=== PATIENT | male | born 1970 | race Caucasian/White ===

== ENCOUNTER 2018-11-22 19:16 | Inpatient (IN) | payer SELFPAY ==
[~2018-11-22] VITALS: Ht 165.1 cm; Wt 82.2 kg
--- NOTE | 2018-11-22 19:32 | ER Report ---
History and Physical Time Seen By MD: 19:32 Hx. of Stated Complaint: Pt. reports he has been depressed and stressed out lately. He took 30 of Venlafaxine HCL 75mg XR Capsules. Chest pain currently 9/10 when he breathes in. Pt. also drank a 40oz beer today. Pt. was not trying to hurt himself/OD. He was just trying to relax by taking the medication. HPI/ROS CHIEF COMPLAINT: Overdose HISTORY OF PRESENT ILLNESS: Patient is a 48 male who is a registered sex offender. He states he's been depressed lately because he can't find a place to live in [facility] he reports that he is a registered sex offender. This has caused him stress and depression. States he took 30 extra tablets 75 mg extended release in an attempt to commit suicide. Additionally, he states he's having some chest pain when he breathes and also drank some beer this evening. He states he was "not trying to hurt himself but" he was just trying to relax. Police have filled out a title 25 There is concern for personal safety. REVIEW OF SYSTEMS: Constitutional: No fever, no chills. Eyes: No discharge. ENT: No sore throat. Cardiovascular: No chest pain, no palpitations. Respiratory: No cough, no shortness of breath. Gastrointestinal: No abdominal pain, no vomiting. Genitourinary: No hematuria. Musculoskeletal: No back pain. Skin: No rashes. Neurological: No headache. Allergies: Coded Allergies: No Known Drug Allergies (Unverified , 11/22/18) Past Medical/Surgical History Prior history of sex offending Constitutional Vital Sign - Last 24 Hours 11/22/18 11/22/18 11/22/18 11/22/18 19:21 19:25 19:30 19:46 Temp 98.3 Pulse 93 110 Resp 16 12 B/P (MAP) 128/86 (100) 128/86 122/88 (99) Pulse Ox 90 93 O2 Delivery Room Air 11/22/18 11/22/18 11/22/18 20:00 20:16 20:46 Pulse 90 99 Resp 18 20 B/P (MAP) 116/77 (90) Pulse Ox 91 90 Physical Exam General/Constitutional: Patient is awake, alert, nontoxic and in no acute respiratory distress. Head: Normocephalic and atraumatic. Eyes: Conjunctival clear, Pupils are equal and reactive to light. Extraocular muscles are intact and symmetrical. Sclera are clear and anicteric. Ears:External canals are clear. Tympanic membranes are clear with normal landmarks and light reflex. Nares: No rhinorrhea or bleeding. Turbinates are pink and moist. Oropharyngeal: Mucous membranes are moist. There is no pharyngeal erythema or exudate. There are no palatal petechiae. Uvula is midline and symmetrical. Neck: Supple, no adenopathy. Cardiovascular: Heart is regular rate and rhythm without audible murmurs, rubs or gallops. Pulmonary: Lungs are clear to auscultation bilaterally. There are no wheezes, rales, or rhonchi. Chest rise is symmetrical Abdomen: Soft, nontender, no guarding or peritoneal signs. Extremities: No gross deformities, No peripheral cyanosis. Able to move all 4 extremities. Neuro: Alert and oriented X3, Cranial nerves 2 thru 12 are intact and symmetrical. Patient has normal gait. Skin: No rashes, skin is warm dry and well perfused.; Psychiatric: Patient with suicidal thoughts; depression Thought process is logic al and goal-directed Medical Decision Making Data Points Result Diagram: 11/22/18191611/22/181916 Laboratory Hematology Test 11/22/18 19:17 11/22/18 20:22 Red Blood Count 5.73 M/uL (4.00-5.60) Mean Corpuscular Volume 85.1 fL (80.0-96.0) Mean Corpuscular Hemoglobin 27.7 pg (26.0-33.0) Mean Corpuscular Hemoglobin Concent 32.6 g/dL (32.0-36.0) Red Cell Distribution Width 17.6 % (11.5-14.5) Mean Platelet Volume 9.1 fL (7.2-11.1) Neutrophils (%) (Auto) 56.9 % (39.4-72.5) Lymphocytes (%) (Auto) 35.2 % (17.6-49.6) Monocytes (%) (Auto) 7.0 % (4.1-12.4) Eosinophils (%) (Auto) 0.4 % (0.4-6.7) Basophils (%) (Auto) 0.5 % (0.3-1.4) Nucleated RBC Relative Count (auto) 0.1 /100WBC Neutrophils # (Auto) 5.3 K/uL (2.0-7.4) Lymphocytes # (Auto) 3.3 K/uL (1.3-3.6) Monocytes # (Auto) 0.7 K/uL (0.3-1.0) Eosinophils # (Auto) 0.0 K/uL (0.0-0.5) Basophils # (Auto) 0.0 K/uL (0.0-0.1) Nucleated RBC Absolute Count (auto) 0.01 K/uL Sodium Level 141 mmol/L (137-145) Potassium Level 3.4 mmol/L (3.5-5.0) Chloride Level 105 mmol/L (98-107) Carbon Dioxide Level 21 mmol/L (22-30) Blood Urea Nitrogen 12 mg/dl (9-21) Creatinine 0.90 mg/dl (0.66-1.25) Glomerular Filtration Rate Calc > 60.0 Random Glucose 119 mg/dl (75-110) Calcium Level 9.8 mg/dl (8.4-10.2) Magnesium Level 2.5 mg/dl (1.7-2.2) Total Bilirubin 0.4 mg/dl (0.2-1.3) Aspartate Amino Transf (AST/SGOT) 30 U/L (0-35) Alanine Aminotransferase (ALT/SGPT) 25 U/L (0-56) Alkaline Phosphatase 100 U/L (0-126) Total Protein 8.9 g/dl (6.3-8.2) Albumin 5.1 g/dl (3.5-5.0) Salicylates Level < 10 mg/L Salicylate Last Dose Date unk Acetaminophen Level < 10 ug/ml Serum Alcohol 168 mg/dl Urine Color Colorless Urine Clarity Clear Urine pH 6.0 pH (4.8-9.5) Urine Specific [place] 1.002 Urine Protein Negative mg/dL (NEGATIVE) Urine Glucose (UA) 50 mg/dL (NEGATIVE) Urine Ketones Negative mg/dL (NEGATIVE) Urine Blood Negative (NEGATIVE) Urine Nitrite Negative (NEGATIVE) Urine Bilirubin Negative (NEGATIVE) Urine Urobilinogen Negative mg/dL (0.2-1.9) Urine Leukocyte Esterase Negative (NEGATIVE) Urine RBC None /HPF (0-2/HPF) Urine WBC None /HPF (0-5/HPF) Urine Squamous Epithelial Cells None /LPF (</=FEW) Urine Bacteria Negative /HPF (NONE-FEW) Urine Mucus None /HPF (NONE-FEW) Urine Opiates Screen Negative Urine Barbiturates Screen Negative Ur Tricyclic Antidepressants Screen Negative Urine Phencyclidine Screen Negative Urine Amphetamines Screen Negative Urine Benzodiazepines Screen Negative Urine Cocaine Screen Negative Urine Cannabinoids Screen Negative Chemistry Test 11/22/18 19:17 11/22/18 20:22 White Blood Count 9.3 k/uL (4.5-11.0) Red Blood Count 5.73 M/uL (4.00-5.60) Hemoglobin 15.9 g/dL (14.0-18.0) Hematocrit 48.8 % (42.0-52.0) Mean Corpuscular Volume 85.1 fL (80.0-96.0) Mean Corpuscular Hemoglobin 27.7 pg (26.0-33.0) Mean Corpuscular Hemoglobin Concent 32.6 g/dL (32.0-36.0) Red Cell Distribution Width 17.6 % (11.5-14.5) Platelet Count 387 K/uL (150-450) Mean Platelet Volume 9.1 fL (7.2-11.1) Neutrophils (%) (Auto) 56.9 % (39.4-72.5) Lymphocytes (%) (Auto) 35.2 % (17.6-49.6) Monocytes (%) (Auto) 7.0 % (4.1-12.4) Eosinophils (%) (Auto) 0.4 % (0.4-6.7) Basophils (%) (Auto) 0.5 % (0.3-1.4) Nucleated RBC Relative Count (auto) 0.1 /100WBC Neutrophils # (Auto) 5.3 K/uL (2.0-7.4) Lymphocytes # (Auto) 3.3 K/uL (1.3-3.6) Monocytes # (Auto) 0.7 K/uL (0.3-1.0) Eosinophils # (Auto) 0.0 K/uL (0.0-0.5) Basophils # (Auto) 0.0 K/uL (0.0-0.1) Nucleated RBC Absolute Count (auto) 0.01 K/uL Glomerular Filtration Rate Calc > 60.0 Calcium Level 9.8 mg/dl (8.4-10.2) Magnesium Level 2.5 mg/dl (1.7-2.2) Total Bilirubin 0.4 mg/dl (0.2-1.3) Aspartate Amino Transf (AST/SGOT) 30 U/L (0-35) Alanine Aminotransferase (ALT/SGPT) 25 U/L (0-56) Alkaline Phosphatase 100 U/L (0-126) Total Protein 8.9 g/dl (6.3-8.2) Albumin 5.1 g/dl (3.5-5.0) Salicylates Level < 10 mg/L Salicylate Last Dose Date unk Acetaminophen Level < 10 ug/ml Serum Alcohol 168 mg/dl Urine Color Colorless Urine Clarity Clear Urine pH 6.0 pH (4.8-9.5) Urine Specific [place] 1.002 Urine Protein Negative mg/dL (NEGATIVE) Urine Glucose (UA) 50 mg/dL (NEGATIVE) Urine Ketones Negative mg/dL (NEGATIVE) Urine Blood Negative (NEGATIVE) Urine Nitrite Negative (NEGATIVE) Urine Bilirubin Negative (NEGATIVE) Urine Urobilinogen Negative mg/dL (0.2-1.9) Urine Leukocyte Esterase Negative (NEGATIVE) Urine RBC None /HPF (0-2/HPF) Urine WBC None /HPF (0-5/HPF) Urine Squamous Epithelial Cells None /LPF (</=FEW) Urine Bacteria Negative /HPF (NONE-FEW) Urine Mucus None /HPF (NONE-FEW) Urine Opiates Screen Negative Urine Barbiturates Screen Negative Ur Tricyclic Antidepressants Screen Negative Urine Phencyclidine Screen Negative Urine Amphetamines Screen Negative Urine Benzodiazepines Screen Negative Urine Cocaine Screen Negative Urine Cannabinoids Screen Negative Toxicology Test 11/22/18 19:17 11/22/18 20:22 Salicylates Level < 10 mg/L Salicylate Last Dose Date unk Acetaminophen Level < 10 ug/ml Serum Alcohol 168 mg/dl Urine Opiates Screen Negative Urine Barbiturates Screen Negative Ur Tricyclic Antidepressants Screen Negative Urine Phencyclidine Screen Negative Urine Amphetamines Screen Negative Urine Benzodiazepines Screen Negative Urine Cocaine Screen Negative Urine Cannabinoids Screen Negative Urinalysis Test 11/22/18 20:22 Urine Color Colorless Urine Clarity Clear Urine pH 6.0 pH (4.8-9.5) Urine Specific [place] 1.002 Urine Protein Negative mg/dL (NEGATIVE) Urine Glucose (UA) 50 mg/dL (NEGATIVE) Urine Ketones Negative mg/dL (NEGATIVE) Urine Blood Negative (NEGATIVE) Urine Nitrite Negative (NEGATIVE) Urine Bilirubin Negative (NEGATIVE) Urine Urobilinogen Negative mg/dL (0.2-1.9) Urine Leukocyte Esterase Negative (NEGATIVE) Urine RBC None /HPF (0-2/HPF) Urine WBC None /HPF (0-5/HPF) Urine Squamous Epithelial Cells None /LPF (</=FEW) Urine Bacteria Negative /HPF (NONE-FEW) Urine Mucus None /HPF (NONE-FEW) EKG/Imaging EKG Interpretation EKG shows sinus rhythm with a ventricular rate of 99 bpm. Nonspecific T-wave abnormality and prolonged QT ED Course/Re-evaluation ED Course 11/22/2018 7:50:06 pm patient with suicidal ideation police filling out title 25. Suicidal ideation. 11/22/2018 8:13:08 pm patient with suicidal ideation I will admit to the ICU for medical clearance and then transferred to behavioral medicine Decision to Disposition Date: Nov 22, 2018 Decision to Disposition Time: 20:12 Depart Departure Latest Vital Signs Vital Signs Date Time Temp Pulse Resp B/P (MAP) Pulse Ox O2 Delivery O2 Flow Rate FiO2 11/22/18 20:46 99 20 90 11/22/18 20:00 116/77 (90) 11/22/18 19:25 98.3 Room Air Impression: Primary Impression: Suicidal overdose Condition: Improved Disposition: Admitted from ER (to ICU dr Irene) Problem Qualifiers Primary Impression: Suicidal overdose Encounter type: initial encounter Qualified Codes: T50.902A - Poisoning by unspecified drugs, medicaments and biological substances, intentional self- harm, initial encounter MAR FROST MD Nov 22, 2018 19:32
[2018-11-22] MEDS ORDERED: ACTIVATED CHAR/SORB 25GM/120ML PO ONE (20:05)
--- NOTE | 2018-11-22 20:24 | BHS - Psychiatric Evaluation ---
ER - Title 25 MHE Evaluation Title 25 Evaluation Patient Detained By: Law Enforcement Referral Source: [place] Date Patient Detained: Nov 22, 2018 Time Patient Detained: 20:18 Date Senior Living Expires: Nov 19, 2018 Time Senior Living Expires: 20:18 Legal Status: Police Hold: Yes Legal Status: Residence: State Resident Assessment Data Provided By: Law Enforcement HPI/ROS: Patient is a 28-year-old male who presents emergency department after an overdose on Effexor patient states that he is depressed because he is a sex offender. Admit due to SI or Attempt: No Suicide Plan: Has Plan with Access Current Suicide Plan Overdose on medication Alcohol or Drugs Involved: Yes (drinking a 40 prior to coming to the emergency department.) Current Intoxication Info: Awake and alert Is Patient Info Reliable: No Is Collateral Info Reliable: Yes Mental Status Exam General Appearance: Casual, Cooperative, Polite Speech: Clear Mood: Dysthmic/Depressed Affect: Full and Appropriate Thought Process: Organized Thought Content: Suicidal Ideation Sensorium: Clear Cognition: Alert & Oriented-Person, Alert & Oriented-Place, Alert & Oriented- Time Memory: Immediate, Recent, Remote Insight Judgment: Intact, Appropriate Sleep: Insomnia Hallucinations: Denies Delusions: Denies Current Risk & History Current Dangerous Risk Assessm: Current Suicide Ideation, Current Suicide Attempt Past Dangerous Risk Assessm: Suicide Attempts-last 6mo Prior Alcohol/Drug Abuse History of alcohol abuse Previous Suicide Attempt: Past - Low Lethality Previous Psychiatric Illness: Yes Previous Diagnosis/Treatment: History of depression Previous Psychiatric Treatment: No Risk Assessment & Disposition Evaluated Risk Assessment: Patient had risk for future harm to self. Needs medical screening exam and admission prior to psychiatric treatment. Impression: Primary Impression: Suicidal overdose Meets Mental Illness Req.: Yes Meets Dangerousness Req.: Yes Emergency Senior Living to be: Upheld Date of Decision: Nov 22, 2018 Time of Decision: 20:22 Patient is Medically Stable at: Yes Disposition: Inpatient Problem Qualifiers Primary Impression: Suicidal overdose Encounter type: initial encounter Qualified Codes: T50.902A - Poisoning by unspecified drugs, medicaments and biological substances, intentional self- harm, initial encounter MAR FROST MD Nov 22, 2018 20:24
[2018-11-22 20:43] LABS: PLATELET COUNT, AUTOMATED 387 K/uL (150-450)
[2018-11-22 21:24] VITALS: BP 126/90
[2018-11-22 21:30] VITALS: BP 139/67
[2018-11-22] MEDS ORDERED: FLUSH 10 ML SYR IVP PRN (21:40)
[2018-11-22] MEDS ORDERED: INFLUENZA VIRUS VAC 0.5ML SYR IM ONLY ONE (21:40)
[2018-11-22] MEDS ORDERED: ONDANSETRON 4 MG/2 ML VIAL IVP PRN (21:40)
[2018-11-22] MEDS ORDERED: ACETAMINOPHEN 325 MG TAB PO PRN (21:40)
[2018-11-22] MEDS ORDERED: NS(*) 0.9% 1000 ML BAG 1,000 ML IV PRN (21:40)
--- NOTE | 2018-11-22 21:43 | EKG ---
FACILITY: [facility] PATIENT NAME: LIZBETH NATION : [id number] MR: [id number] V: [id number] EXAM DATE: ORDERING PHYSICIAN: MAR FROST TECHNOLOGIST: YESICA Pulido Reason : Blood Pressure : / mmHG Vent. Rate : 099 BPM Atrial Rate : 099 BPM P-R Int : 176 ms QRS Dur : 084 ms QT Int : 374 ms P-R-T Axes : 061 059 016 degrees QTc Int : 479 ms Normal sinus rhythm Nonspecific T wave abnormality Prolonged QT Abnormal ECG No previous ECGs available Confirmed by Rafael Drew ([id number]) on 11/22/2018 11:11:07 PM Referred By: Confirmed By:Rafael Irene
[2018-11-22] MEDS: KCL/NS* 20 MEQ/1000 ML PREMIX 1,000 ML IV SCH (21:55)
--- NOTE | 2018-11-22 22:58 | History & Physical ---
History of Present Illness Chief Complaint overdose History of Present Illness 48M presented after reported overdose on 30 tablets of Effexor. PMHx unavailable as patient relatively uncooperative. Reported to ER staff he intentionally overdosed as he is sex offender and has been unable to find work or do anything because of it. Does admit to drinking a 40 of beer earlier tonight. Admitted for medical clearance before evaluation and disposition from [facility]. He is on behavioral health hold initiated by the ER. History Unable To Obtain Past Medical: Refused Allergies: Coded Allergies: No Known Drug Allergies (Unverified , 11/22/18) Hx Alcohol Use: No Review of Systems Other reports some CP but otherwise uncooperative Exam Vital Signs Vital Signs Date Time Temp Pulse Resp B/P (MAP) Pulse Ox O2 Delivery O2 Flow Rate FiO2 11/22/18 21:24 100 24 126/90 (102) 95 Room Air 11/22/18 19:25 98.3 General Appearance: Alert, Awake, No Acute Distress (uncooperative) Neuro: No Gross deficits Cardiovascular: Normal Rhythm & Peripheral Pulses Respiratory: No Respiratory Distress Medical Decision Making Data Points Result Diagram: 11/22/18191611/22/181916 Assessment and Plan Problems: (1) Suicidal overdose Status: Acute Assessment & Plan: Reports taking 30 tablets Effexor. QTc prolonged, will monitor with EKG and optimize electrolytes, provide IV hydration. [facility] notified and likely will be medically cleared for transfer tomorrow. (2) Chest pain Assessment & Plan: Appears atypical, likely not cardiac in nature. EKG in ER without acute changes of ischemia. Will repeat EKG in am, trend troponin tonight. Venous Thromboembolism Antithrombotics Is Pt On Any Antithrombotics?: No Exam Sepsis Risk: No Definite Risk Problem Qualifiers (1) Suicidal overdose: Encounter type: initial encounter Qualified Codes: T50.902A - Poisoning by unspecified drugs, medicaments and biological substances, intentional self-harm, initial encounter CLARE MTZ DO Nov 22, 2018 22:58
[2018-11-23 03:12] VITALS: BP 134/89
--- NOTE | 2018-11-23 05:43 | EKG ---
FACILITY: [facility] PATIENT NAME: LIZBETH NATION : [id number] MR: [id number] V: [id number] EXAM DATE: ORDERING PHYSICIAN: CLARE IRENE TECHNOLOGIST: YESICA Pulido Reason : Blood Pressure : / mmHG Vent. Rate : 103 BPM Atrial Rate : 103 BPM P-R Int : 164 ms QRS Dur : 086 ms QT Int : 356 ms P-R-T Axes : 071 068 029 degrees QTc Int : 466 ms Sinus tachycardia Otherwise normal ECG When compared with ECG of 22-NOV-2018 19:27, No significant change was found Confirmed by Clare Drew ([id number]) on 11/23/2018 6:35:22 AM Referred By: Confirmed By:Clare Irene
[2018-11-23 05:53] LABS: PLATELET COUNT, AUTOMATED 338 K/uL (150-450)
[2018-11-23 07:12] VITALS: BP 119/84
[2018-11-23] MEDS: KCL/NS* 20 MEQ/1000 ML PREMIX 1,000 ML IV SCH (07:33)
[2018-11-23 07:41] VITALS: BP 142/96
--- NOTE | 2018-11-23 08:34 | Hospitalist Depart ---
Discharge Summary Reason for Hosp/Final Diag: (1) Suicidal overdose Status: Acute Hospital Course & Plan: He reportedly took 30 tablets of Effexor in a suicide attempt related to depression. He was given activated charcoal/sorbitol in the ER. His QTc was slightly prolonged. He was monitored and no dysrhythmias were noted. His EKG the following morning showed shortening on his QTc. His electrolytes were replaced and were normal at time of discharge. The S unit was notified and is medically cleared for transfer. (2) Chest pain Status: Acute Hospital Course & Plan: Atypical, likely not cardiac in nature. EKG in ER without acute changes of ischemia. Serial troponins were normal. Departure Weight (Pounds): 181 Weight (Ounces): 3.0 Result Diagram: 11/23/1853911/23/18539 Item Value Date Time Albumin 5.1 g/dl H 11/22/181916 Total Protein 8.9 g/dl H 11/22/181916 Alkaline Phosphatase 100 U/L 11/22/181916 Alanine Aminotransferase (ALT/SGPT) 25 U/L 11/22/181916 Aspartate Amino Transf (AST/SGOT) 30 U/L 11/22/181916 Total Bilirubin 0.4 mg/dl 11/22/181916 Magnesium Level 2.5 mg/dl H 11/22/181916 Calcium Level 9.8 mg/dl 11/22/181916 Random Glucose 119 mg/dl H 11/22/181916 Creatinine 0.90 mg/dl 11/22/181916 Blood Urea Nitrogen 12 mg/dl 11/22/181916 Carbon Dioxide Level 21 mmol/L L 11/22/181916 Chloride Level 105 mmol/L 11/22/181916 Potassium Level 3.4 mmol/L L 11/22/181916 Sodium Level 141 mmol/L 11/22/181916 Troponin I < 0.012 ng/ml 11/22/182205 Troponin I < 0.012 ng/ml 11/23/18539 Albumin 4.3 g/dl 11/23/18539 Total Protein 7.5 g/dl 11/23/18539 Alkaline Phosphatase 84 U/L 11/23/18539 Alanine Aminotransferase (ALT/SGPT) 26 U/L 2/15/19 0540 Aspartate Amino Transf (AST/SGOT) 22 U/L 11/23/18 0540 Total Bilirubin 0.6 mg/dl 11/23/18 0540 Magnesium Level 2.1 mg/dl 11/23/18 0540 Calcium Level 9.2 mg/dl 11/23/18 0540 Urine Mucus None /HPF 11/22/182021 Urine Bacteria Negative /HPF 11/22/182021 Urine Squamous Epithelial Cells None /LPF 11/22/182021 Urine WBC None /HPF 11/22/182021 Urine RBC None /HPF 11/22/182021 Urine Leukocyte Esterase Negative 11/22/182021 Urine Urobilinogen Negative mg/dL 11/22/182021 Urine Bilirubin Negative 11/22/182021 Urine Nitrite Negative 11/22/182021 Urine Blood Negative 11/22/182021 Urine Ketones Negative mg/dL 11/22/182021 Urine Glucose (UA) 50 mg/dL H 11/22/182021 Urine Protein Negative mg/dL 11/22/182021 Urine Specific [place] 1.002 11/22/182021 Urine pH 6.0 pH 11/22/182021 Urine Clarity Clear 11/22/182021 Urine Color Colorless 11/22/182021 Urine Cannabinoids Screen Negative 11/22/182021 Urine Cocaine Screen Negative 11/22/182021 Urine Benzodiazepines Screen Negative 11/22/182021 Urine Amphetamines Screen Negative 11/22/182021 Urine Phencyclidine Screen Negative 11/22/182021 Urine Barbiturates Screen Negative 11/22/182021 Ur Tricyclic Antidepressants Screen Negative 11/22/182021 Urine Opiates Screen Negative 11/22/182021 Serum Alcohol 168 mg/dl 11/22/181916 Acetaminophen Level < 10 ug/ml 11/22/181916 Salicylates Level < 10 mg/L 11/22/181916 Imaging PATIENT NAME: LIZBETH NATION : [id number] MR: [id number] V: [id number] EXAM DATE: ORDERING PHYSICIAN: MAR FROST TECHNOLOGIST: YESICA Test Reason : Blood Pressure : / mmHG Vent. Rate : 099 BPM Atrial Rate : 099 BPM P-R Int : 176 ms QRS Dur : 084 ms QT Int : 374 ms P-R-T Axes : 061 059 016 degrees QTc Int : 479 ms Normal sinus rhythm Nonspecific T wave abnormality Prolonged QT Abnormal ECG No previous ECGs available Confirmed by Clare Drew ([id number]) on 11/22/2018 11:11:07 PM Referred By: Confirmed By:Clare Irene PATIENT NAME: LIZBETH NATION : [id number] MR: [id number] V: [id number] EXAM DATE: ORDERING PHYSICIAN: CLARE IRENE TECHNOLOGIST: PANTIER Test Reason : Blood Pressure : / mmHG Vent. Rate : 103 BPM Atrial Rate : 103 BPM P-R Int : 164 ms QRS Dur : 086 ms QT Int : 356 ms P-R-T Axes : 071 068 029 degrees QTc Int : 466 ms Sinus tachycardia Otherwise normal ECG When compared with ECG of 22-NOV-2018 19:27, No significant change was found Confirmed by Clare Drew ([id number]) on 11/23/2018 6:35:22 AM Referred By: Confirmed By:Clare Irene Condition: Improved Discharge: [facility] Time Spent: > 30 min Discharge Instructions Diet: Regular Activity: As Tolerated Special Instructions: He will be transferred to [facility] unit for ongoing evaluation and treatment. Venous Thromboembolism Antithrombotics Is Pt On Any Antithrombotics?: No Problem Qualifiers (1) Suicidal overdose: Encounter type: initial encounter Qualified Codes: T50.902A - Poisoning by unspecified drugs, medicaments and biological substances, intentional self-harm, initial encounter MICHELL WAYNE MD Nov 23, 2018 08:34
== END 2018-11-23 13:35 | DRG 918 ==
LOC: ER 19:20 → MED 20:48
PROVIDERS: ADMIT Internal Medicine; ATTEND Internal Medicine
DX: T43.212A Poisoning by selective serotonin and norepinephrine reuptake inhibitors, intentional self-harm, initial encounter (principal); R45.851 Suicidal ideations; F32.9 Major depressive disorder, single episode, unspecified; Z73.3 Stress, not elsewhere classified; Z59.8 Other problems related to housing and economic circumstances
CPT/HCPCS: 36415; 80305; 80320; 80329; 81001; 82040; 82247; 82310; 82374; 82435; 82565; 82947; 83735; 84075; 84132; 84155; 84295; 84443; 84450; 84460; 84484; 84520; 85025; 93005; 99285; J3480

== ENCOUNTER → 2018-11-22 | Outpatient (CLI) | payer SELFPAY ==
[~2018-11-22] MED LIST: MIRT-1 PO; MULT-859 PO
== END ==
LOC: AMB 19:06
PROVIDERS: ATTEND Nurse Practitioner
DX: R41.82 Altered mental status, unspecified (principal); T43.211A Poisoning by selective serotonin and norepinephrine reuptake inhibitors, accidental (unintentional), initial encounter; Y92.039 Unspecified place in apartment as the place of occurrence of the external cause
CPT/HCPCS: A0425; A0427

== ENCOUNTER 2018-11-23 13:35 | Inpatient (IN) | payer OTHER ==
[2018-11-23 13:35] VITALS: BP 134/88
[2018-11-23] MEDS ORDERED: MIRTAZAPINE 15 MG TAB PO PRN (13:55)
[2018-11-23] MEDS ORDERED: ACETAMINOPHEN 325 MG TAB PO PRN (13:55)
[2018-11-23 21:45] VITALS: BP 118/84
[2018-11-24 06:20] VITALS: BP 120/86
[2018-11-24] MEDS: MULTIVITAMINS PO SCH (08:19)
[2018-11-24 12:20] VITALS: BP 118/74
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
[2018-11-25 05:56] VITALS: BP 108/71
[2018-11-25] MEDS: MULTIVITAMINS PO SCH (08:34)
--- NOTE | 2018-11-25 11:56 | BHS Progress Note ---
[facility] - Subjective Progress Notes Subjective "I'm feeling good. " Client reports that he slept off and on last night. He did not receive the PRN mirtazapine as he was not aware he had to ask for it. Discharge planning discussed including referral for outpatient therapy. Suicidal Ideation: None Homicidal Ideation: None [facility] - Objective Physical Exam Vital Signs Vital Signs Date Time Temp Pulse Resp B/P (MAP) Pulse Ox O2 Delivery O2 Flow Rate FiO2 11/25/18 05:56 98.7 65 15 108/71 (83) 95 Room Air Muscle Strength and Tone: WNL Gait and Station: Steady [facility] Medications Reviewed: Side Effects, Benefits of Medication, Risks Allergies Reviewed: Yes Mental Status Exam General Appearance: Casual, Well Groomed, Good Eye Contact, Cooperative, Polite, Good Interaction Speech: Clear, Spontaneous, Normal Rate, Normal Rhythm, Normal Volume, Normal Tone Mood: Other (Stressed") Affect: Full and Appropriate, Calm Thought Process: Organized, Logical, Goal Directed, Loose Associations; No Flight of Ideas Thought Content: No Suicidal Ideation, No Homicidal Ideation, No Delusions, No Auditory Halllucinations, No Visual Hallucinations, No Thought Broadcasting, No Ideas of Reference, No Obsessions, No Compulsions Sensorium: Clear Cognition: Alert & Oriented-Person, Alert & Oriented-Place, Alert & Oriented- Time, Vlovl-Dociboxp-Siiyfwidm Memory: Immediate, Recent, Remote Insight Judgment: Fair [facility] Assessment and Plan Mafl-[id number] Encounter Date: Nov 25, 2018 Bhzz-zf-[id number] Encounter Time: 10:00 [facility] Plan: Admit to Unit, Necessary Precautions, Individual/Group Therapy, Admin/Titrate Meds, Educate Patient Multpiple Antipsychotics Used: No Problems: (1) Adjustment disorder Status: Chronic (2) Suicidal overdose Status: Resolved Problem Qualifiers (1) Adjustment disorder: Adjustment disorder type: with depressed mood Qualified Codes: F43.21 - Adjustment disorder with depressed mood SAMANTHA HARDY NP Nov 25, 2018 11:56
[2018-11-25] MEDS: MAG HYD/AL HYD/SIMETH 30ML UDC PO PRN (11:57)
[2018-11-25 12:30] VITALS: BP 112/60
[2018-11-25 19:45] VITALS: BP 106/80
[2018-11-25] MEDS ORDERED: MIRTAZAPINE 15 MG TAB PO SCH (21:00)
[2018-11-26 06:03] VITALS: BP 100/67
[2018-11-26] MEDS: MULTIVITAMINS PO SCH (08:09)
[2018-11-26] MEDS: MAG HYD/AL HYD/SIMETH 30ML UDC PO PRN (11:11)
[2018-11-26] MEDS ORDERED: MIRT-1 PO (11:49)
[2018-11-26] MEDS ORDERED: MULT-859 PO (11:50)
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
[2018-11-26 13:21] VITALS: BP 114/62
== END 2018-11-26 16:01 | disposition home or self-care (01) | DRG 881 ==
LOC: BHS 13:35
PROVIDERS: ADMIT Psychiatry & Neurology Psychiatry; ATTEND Psychiatry & Neurology Psychiatry
DX: F43.21 Adjustment disorder with depressed mood (principal); R45.851 Suicidal ideations; T43.212A Poisoning by selective serotonin and norepinephrine reuptake inhibitors, intentional self-harm, initial encounter; K21.9 Gastro-esophageal reflux disease without esophagitis; Z59.8 Other problems related to housing and economic circumstances; Z56.0 Unemployment, unspecified